=== PATIENT | female | born 1960 | race Caucasian/White ===

== ENCOUNTER 2019-04-05 05:28 | Inpatient (IN) ==
[2019-04-05] MEDS ORDERED: CLINDAMYCIN INJ 900 MG in PREMIX 1 EACH IV ONE (06:00)
[2019-04-05] MEDS ORDERED: VANCOMYCIN INJ 1,000 MG in SODIUM CHLORIDE 0.9% 250 ML IV ONE ×2 (06:00→19:05)
[2019-04-05] MEDS ORDERED: SCOPOLAMINE 1.5 MG PATCH TRANSDERM ONE ×2 (06:52→07:04)
[2019-04-05] MEDS ORDERED: VANCOMYCIN 1,000 MG VIAL ONE (07:04)
[2019-04-05] MEDS ORDERED: CLINDAMYCIN INJ 50 ML IV ONE (07:04)
[2019-04-05] MEDS ORDERED: LACTATED RINGERS 1,000 ML IV SCH (07:30)
[2019-04-05] MEDS ORDERED: BUPIVACAINE 0.5% 50 ML VIAL ONE (10:32)
[2019-04-05] MEDS ORDERED: DEXAMETHASONE 4 MG/1 ML VIAL ONE (10:32)
[2019-04-05] MEDS ORDERED: EPINEPHrine 1 MG/ML VIAL ONE (10:32)
[2019-04-05] MEDS ORDERED: GLUCAGON 1 MG VIAL IM PRN (11:04)
[2019-04-05] MEDS ORDERED: DEXTROSE 10% 25 GM/250 ML BAG IV PRN (11:04)
[2019-04-05] MEDS ORDERED: MORPHINE 4 MG/1 ML VIAL IV PRN ×2 (11:05)
[2019-04-05] MEDS ORDERED: ONDANSETRON 4 MG/2 ML VIAL IV PRN ×2 (11:05→13:25)
[2019-04-05] MEDS ORDERED: oxyCODONE IR 5 MG TABLET PO PRN ×2 (11:05)
[2019-04-05] MEDS ORDERED: ZALEPLON 5 MG CAPSULE PO PRN (11:05)
[2019-04-05] MEDS ORDERED: diphenhydrAMINE CAP 25 MG CAPSULE PO PRN (11:05)
[2019-04-05] MEDS: INSULIN LISPRO 100 UNIT/ML SUBCUT SCH ×3 (11:30→21:53)
[2019-04-05] MEDS ORDERED: SEVOFLURANE 1 UNIT/15 MINUTE INH ONE (13:18)
[2019-04-05] MEDS ORDERED: PROPOFOL 200 MG/20 ML VIAL IV ONE (13:18)
[2019-04-05] MEDS ORDERED: SUCCINYLCHOLINE 200 MG/10 ML VIAL ONE (13:19)
[2019-04-05] MEDS ORDERED: fentaNYL 100 MCG/2 ML VIAL ONE (13:19)
[2019-04-05] MEDS ORDERED: ROCURONIUM 100 MG/10 ML VIAL IV ONE (13:19)
[2019-04-05] MEDS ORDERED: ONDANSETRON 4 MG/2 ML VIAL ONE (13:19)
[2019-04-05] MEDS ORDERED: ACETAMINOPHEN 1,000 MG/100 ML VIAL IV ONE (13:19)
[2019-04-05] MEDS ORDERED: METOPROLOL TARTRATE 5 MG/5 ML VIAL IV ONE (13:19)
[2019-04-05] MEDS ORDERED: LACTATED RINGERS 1,000 ML IV ONE (13:19)
[2019-04-05] MEDS: HYDROmorphone 2 MG/1 ML VIAL IV PRN ×5 (13:32→14:45)
[2019-04-05] MEDS: LACTATED RINGERS 1,000 ML IV SCH ×2 (13:57→19:29)
[2019-04-05] MEDS: metFORMIN 500 MG TABLET PO SCH (16:57)
[2019-04-05] MEDS: ACETAMINOPHEN 500 MG TABLET PO SCH ×2 (17:07→21:54)
[2019-04-05] MEDS: CLINDAMYCIN INJ 900 MG in PREMIX 1 EACH IV SCH ×2 (17:17→23:18)
[2019-04-05] MEDS ORDERED: FESOTERODINE 8 MG PO SCH (21:00)
[2019-04-05] MEDS: DOCUSATE SODIUM 100 MG CAPSULE PO SCH (21:54)
[2019-04-06] MEDS: LACTATED RINGERS 1,000 ML IV SCH (04:35)
[2019-04-06] MEDS: FONDAPARINUX 2.5 MG/0.5 ML SYRINGE SUBCUT SCH (05:23)
[2019-04-06 05:38] LABS: Basophils % 0.2 % (0.0-0.8); Hematocrit 39.9 VOL% (35.7-47.0); Hemoglobin 12.8 GM/DL (12.0-16.0); Immature Granulocytes % 0.5 %; Immature Granulocytes Absolute 0.05 #; Lymphocytes # 1.7 10*3/uL (1.4-4.0); Lymphocytes % 16.3 % (21.3-54.2); Mean Corpuscular HGB Conc 32.1 GM/DL (32-36); Mean Corpuscular Volume 91.1 FL (87-102); Mean Platelet Volume 9.7 FL (9.6-12.0); Monocytes % 11.4 % (1.7-12.7); Neutrophils % 71.6 % (38.7-73.9); Platelet Count 241 T/CUMM (130-400); Red Blood Count 4.38 MC/CUMM (3.8-5.5); Red Cell Distribution Width 12.7 % (9.3-17.3); White Blood Count 10.6 T/CUMM (4-12)
[2019-04-06 06:11] LABS: Calcium 9.3 MG/DL (8.5-10.1)
[2019-04-06] MEDS: INSULIN LISPRO 100 UNIT/ML SUBCUT SCH ×4 (07:30→20:57)
[2019-04-06] MEDS ORDERED: NF- (Liraglutide [Victoza 2-Pak] 1.8 MG) SUBCUT SCH (09:00)
[2019-04-06] MEDS: LOSARTAN 50 MG TABLET PO SCH (09:37)
[2019-04-06] MEDS: MULTIVITAMIN (CENTRUM) TABLET PO SCH (09:37)
[2019-04-06] MEDS: LORATADINE 10 MG TABLET PO SCH (09:37)
[2019-04-06] MEDS: PANTOPRAZOLE 40 MG TABLET PO SCH (09:37)
[2019-04-06] MEDS: DOCUSATE SODIUM 100 MG CAPSULE PO SCH ×2 (09:37→20:57)
[2019-04-06] MEDS: ACETAMINOPHEN 500 MG TABLET PO SCH ×2 (09:37→15:05)
[2019-04-06] MEDS: metFORMIN 500 MG TABLET PO SCH ×2 (09:48→17:07)
[2019-04-06] MEDS ORDERED: ACETAMINOPHEN 500 MG TABLET ONE (14:59)
[2019-04-07 05:13] LABS: Basophils # 0.1 10*3/uL (0.0-0.2); Basophils % 0.5 % (0.0-0.8); Eosinophils # 0.2 10*3/uL (0.0-0.87); Eosinophils % 1.4 % (0.00-10.9); Hematocrit 37.2 VOL% (35.7-47.0); Hemoglobin 11.5 GM/DL (12.0-16.0); Immature Granulocytes % 0.7 %; Immature Granulocytes Absolute 0.08 #; Lymphocytes # 2.8 10*3/uL (1.4-4.0); Lymphocytes % 24.9 % (21.3-54.2); Mean Corpuscular HGB Conc 30.9 GM/DL (32-36); Mean Corpuscular Volume 93.9 FL (87-102); Mean Platelet Volume 9.7 FL (9.6-12.0); Monocytes % 13.1 % (1.7-12.7); Neutrophils % 59.4 % (38.7-73.9); Platelet Count 220 T/CUMM (130-400); Red Blood Count 3.96 MC/CUMM (3.8-5.5); Red Cell Distribution Width 13.1 % (9.3-17.3); White Blood Count 11.1 T/CUMM (4-12)
[2019-04-07 05:27] LABS: Calcium 9.1 MG/DL (8.5-10.1)
[2019-04-07] MEDS: FONDAPARINUX 2.5 MG/0.5 ML SYRINGE SUBCUT SCH (05:43)
[2019-04-07] MEDS: INSULIN LISPRO 100 UNIT/ML SUBCUT SCH ×4 (07:57→20:43)
[2019-04-07] MEDS ORDERED: hydroCHLOROthiazide 25 MG TABLET PO SCH (09:00)
[2019-04-07] MEDS: metFORMIN 500 MG TABLET PO SCH ×2 (09:00→17:59)
[2019-04-07] MEDS: MULTIVITAMIN (CENTRUM) TABLET PO SCH (09:28)
[2019-04-07] MEDS: PANTOPRAZOLE 40 MG TABLET PO SCH (09:29)
[2019-04-07] MEDS: DOCUSATE SODIUM 100 MG CAPSULE PO SCH ×2 (09:29→20:43)
[2019-04-07] MEDS: LORATADINE 10 MG TABLET PO SCH (09:29)
[2019-04-07] MEDS: LOSARTAN 50 MG TABLET PO SCH (09:29)
[2019-04-07] MEDS: MAGNESIUM HYDROXIDE SUSP 30 ML UDCUP PO PRN (20:43)
[2019-04-08] MEDS: FONDAPARINUX 2.5 MG/0.5 ML SYRINGE SUBCUT SCH (05:14)
[2019-04-08] MEDS: metFORMIN 500 MG TABLET PO SCH (08:33)
[2019-04-08] MEDS: LORATADINE 10 MG TABLET PO SCH (08:33)
[2019-04-08] MEDS: MULTIVITAMIN (CENTRUM) TABLET PO SCH (08:33)
[2019-04-08] MEDS: DOCUSATE SODIUM 100 MG CAPSULE PO SCH (08:34)
[2019-04-08] MEDS: PANTOPRAZOLE 40 MG TABLET PO SCH (08:34)
[2019-04-08] MEDS: LOSARTAN 50 MG TABLET PO SCH (08:34)
[2019-04-08] MEDS: MAGNESIUM HYDROXIDE SUSP 30 ML UDCUP PO PRN (08:34)
[2019-04-08] MEDS: INSULIN LISPRO 100 UNIT/ML SUBCUT SCH ×2 (08:37→12:35)
[2019-04-08 11:47] VITALS: BP 150/77
== END 2019-04-08 14:15 | DRG 302 ==
LOC: N.OR 05:28 → N.SDSINP 05:29 → N.3E 15:59
PROVIDERS: ADMIT Orthopaedic Surgery; ATTEND Orthopaedic Surgery

== ENCOUNTER 2019-08-02 05:19 | Inpatient (IN) ==
[2019-07-20 13:43] LABS: Basophils # 0.1 10*3/uL (0.0-0.2); Basophils % 0.7 % (0.0-0.8); Eosinophils # 0.3 10*3/uL (0.0-0.87); Eosinophils % 2.7 % (0.00-10.9); Hematocrit 45.4 VOL% (35.7-47.0); Hemoglobin 14.7 GM/DL (12.0-16.0); Immature Granulocytes % 0.4 %; Immature Granulocytes Absolute 0.04 #; Lymphocytes # 3.7 10*3/uL (1.4-4.0); Lymphocytes % 39.2 % (21.3-54.2); Mean Corpuscular HGB Conc 32.4 GM/DL (32-36); Mean Corpuscular Volume 89.7 FL (87-102); Monocytes % 8.6 % (1.7-12.7); Neutrophils % 48.4 % (38.7-73.9); Platelet Count 325 T/CUMM (130-400); Red Blood Count 5.06 MC/CUMM (3.8-5.5); Red Cell Distribution Width 12.5 % (9.3-17.3); White Blood Count 9.5 T/CUMM (4-12)
[2019-07-20 13:46] LABS: Apearance,Urine CLEAR (Clear); Bacteria,Urine Occasional /HPF (Few); Bilirubin,Urine Negative (Negative); Blood, Urine Negative (Negative); Glucose,Urine (UA) Negative (Negative); Ketones,Urine Negative (Negative); Nitrite,Urine Negative (Negative); Protein,Urine Negative; Squamous Epithelial Cell,Urine Occasional /HPF (0-10); Urine Color Straw (Yellow); Urine Specific Gravity 1.003 (1.001-1.035); Urine Urobilinogen < 2.0 EU/DL (0.2-1.0); WBC,Urine 1 /HPF (0-6)
[2019-07-20 14:07] LABS: INR 0.9; PT Patient Result 9.8 SECS (9.6-12.2); Partial Thromboplastin Time 26.4 SECS (20.8-36.0)
[2019-07-20 14:09] LABS: Albumin 3.5 G/DL (3.4-5.0); Bilirubin,Total 0.4 MG/DL (0.2-1.0); Calcium 10.1 MG/DL (8.5-10.1); Osmolality,Calculated 279.4 MOS/KG (273-304)
[2019-08-02] MEDS ORDERED: LACTATED RINGERS 1,000 ML IV SCH (06:00)
[2019-08-02] MEDS ORDERED: FAMOTIDINE 20 MG TABLET PO ONE (06:00)
[2019-08-02] MEDS ORDERED: ACETAMINOPHEN 500 MG TABLET PO ONE (06:00)
[2019-08-02] MEDS ORDERED: GABAPENTIN 400 MG CAPSULE PO ONE (06:00)
[2019-08-02] MEDS ORDERED: SCOPOLAMINE 1.5 MG PATCH TRANSDERM ONE ×2 (06:00→07:13)
[2019-08-02] MEDS ORDERED: DIAZEPAM 5 MG TABLET PO ONE (06:00)
[2019-08-02] MEDS ORDERED: CLINDAMYCIN INJ 900 MG in PREMIX 1 EACH IV ONE (06:30)
[2019-08-02] MEDS ORDERED: VANCOMYCIN INJ 1,000 MG in SODIUM CHLORIDE 0.9% 250 ML IV ONE ×2 (06:30→23:00)
[2019-08-02] MEDS ORDERED: DIAZEPAM 5 MG TABLET ONE (07:13)
[2019-08-02] MEDS ORDERED: ACETAMINOPHEN 500 MG TABLET ONE (07:13)
[2019-08-02] MEDS ORDERED: CLINDAMYCIN INJ 50 ML IV ONE (07:13)
[2019-08-02] MEDS ORDERED: GABAPENTIN 400 MG CAPSULE ONE (07:13)
[2019-08-02] MEDS ORDERED: FAMOTIDINE 20 MG TABLET ONE (07:14)
[2019-08-02] MEDS ORDERED: VANCOMYCIN 1,000 MG VIAL ONE (07:55)
[2019-08-02] MEDS ORDERED: LIDOCAINE 1% 5 ML VIAL ONE (10:03)
[2019-08-02] MEDS ORDERED: BUPIVACAINE SPINAL 0.75% 2 ML AMP SPINAL ONE ×2 (10:03→12:59)
[2019-08-02] MEDS ORDERED: DEXAMETHASONE 4 MG/1 ML VIAL ONE (10:03)
[2019-08-02] MEDS ORDERED: ROPIVACAINE 0.5% 30 ML VIAL ONE (10:03)
[2019-08-02] MEDS ORDERED: BACITRACIN OINT 0.9 GM PACK TOP ONE (12:03)
[2019-08-02] MEDS ORDERED: MAGNESIUM HYDROXIDE SUSP 30 ML UDCUP PO PRN (12:56)
[2019-08-02] MEDS ORDERED: ONDANSETRON 4 MG/2 ML VIAL IV PRN (12:56)
[2019-08-02] MEDS ORDERED: ZALEPLON 5 MG CAPSULE PO PRN (12:56)
[2019-08-02] MEDS ORDERED: diphenhydrAMINE CAP 25 MG CAPSULE PO PRN (12:56)
[2019-08-02] MEDS ORDERED: GLUCAGON 1 MG VIAL IM PRN ×2 (12:58→15:31)
[2019-08-02] MEDS ORDERED: DEXTROSE 10% 25 GM/250 ML BAG IV PRN (12:58)
[2019-08-02] MEDS ORDERED: MIDAZOLAM 2 MG/2 ML VIAL ONE (12:59)
[2019-08-02] MEDS ORDERED: PROPOFOL 500 MG/50 ML BOTTLE IV ONE (12:59)
[2019-08-02] MEDS ORDERED: TRANEXAMIC ACID 1,000 MG/10 ML VIAL ONE (12:59)
[2019-08-02] MEDS ORDERED: SODIUM CHLORIDE 0.9% 400 ML IV ONE (12:59)
[2019-08-02] MEDS ORDERED: PHENYLEPHRINE 1 MG/10 ML SYRINGE IV ONE (12:59)
[2019-08-02] MEDS ORDERED: PROPOFOL 200 MG/20 ML VIAL IV ONE (12:59)
[2019-08-02] MEDS: LACTATED RINGERS 1,000 ML IV SCH ×2 (14:10→21:24)
[2019-08-02] MEDS: MORPHINE 4 MG/1 ML VIAL IV PRN ×2 (15:24→18:50)
[2019-08-02] MEDS ORDERED: DEXTROSE 10% 250 ML BAG IV PRN (15:31)
[2019-08-02] MEDS ORDERED: hydrALAZINE 20 MG/1 ML VIAL IV PRN (15:37)
[2019-08-02] MEDS ORDERED: TUBERCULIN SKIN TEST 0.1 ML SYRINGE INTRADERM ONE (16:10)
[2019-08-02] MEDS: INSULIN LISPRO 100 UNIT/ML SUBCUT SCH ×2 (16:56→20:38)
[2019-08-02] MEDS: metFORMIN 500 MG TABLET PO SCH (17:03)
[2019-08-02] MEDS: DOCUSATE SODIUM 100 MG CAPSULE PO SCH (20:38)
[2019-08-02] MEDS: CLINDAMYCIN INJ 900 MG in PREMIX 1 EACH IV SCH (20:38)
[2019-08-03] MEDS: MORPHINE 4 MG/1 ML VIAL IV PRN ×3 (00:06→18:04)
[2019-08-03] MEDS: CLINDAMYCIN INJ 900 MG in PREMIX 1 EACH IV SCH (04:31)
[2019-08-03 05:28] LABS: Basophils % 0.3 % (0.0-0.8); Eosinophils % 0.1 % (0.00-10.9); Hematocrit 39.6 VOL% (35.7-47.0); Hemoglobin 12.7 GM/DL (12.0-16.0); Immature Granulocytes % 0.6 %; Immature Granulocytes Absolute 0.06 #; Lymphocytes # 1.8 10*3/uL (1.4-4.0); Mean Corpuscular HGB Conc 32.1 GM/DL (32-36); Mean Corpuscular Volume 89.6 FL (87-102); Mean Platelet Volume 9.1 FL (9.6-12.0); Monocytes % 11.5 % (1.7-12.7); Neutrophils % 69.5 % (38.7-73.9); Platelet Count 234 T/CUMM (130-400); Red Blood Count 4.42 MC/CUMM (3.8-5.5); Red Cell Distribution Width 12.6 % (9.3-17.3); White Blood Count 9.7 T/CUMM (4-12)
[2019-08-03 05:44] LABS: Calcium 9.7 MG/DL (8.5-10.1); Osmolality,Calculated 286.1 MOS/KG (273-304)
[2019-08-03] MEDS: FONDAPARINUX 2.5 MG/0.5 ML SYRINGE SUBCUT SCH (06:20)
[2019-08-03] MEDS: DOCUSATE SODIUM 100 MG CAPSULE PO SCH ×2 (08:06→20:56)
[2019-08-03] MEDS: OLMESARTAN 20 MG TABLET PO SCH (08:07)
[2019-08-03] MEDS: MULTIVITAMIN (CENTRUM) TABLET PO SCH (08:07)
[2019-08-03] MEDS: metFORMIN 500 MG TABLET PO SCH ×2 (08:07→18:03)
[2019-08-03] MEDS: INSULIN LISPRO 100 UNIT/ML SUBCUT SCH ×4 (08:44→20:55)
[2019-08-03] MEDS ORDERED: Liraglutide [Victoza 2-Pak] 1.8 MG SUBCUT SCH (09:00)
[2019-08-03] MEDS ORDERED: FESOTERODINE 8 MG PO SCH (09:00)
[2019-08-04] MEDS: MORPHINE 4 MG/1 ML VIAL IV PRN ×2 (01:41→09:27)
[2019-08-04 05:20] LABS: Basophils # 0.1 10*3/uL (0.0-0.2); Basophils % 0.5 % (0.0-0.8); Eosinophils # 0.1 10*3/uL (0.0-0.87); Eosinophils % 1.1 % (0.00-10.9); Hematocrit 37.6 VOL% (35.7-47.0); Hemoglobin 12.2 GM/DL (12.0-16.0); Immature Granulocytes % 1.5 %; Immature Granulocytes Absolute 0.16 #; Lymphocytes # 2.1 10*3/uL (1.4-4.0); Lymphocytes % 18.6 % (21.3-54.2); Mean Corpuscular HGB Conc 32.4 GM/DL (32-36); Mean Corpuscular Volume 89.5 FL (87-102); Monocytes % 12.3 % (1.7-12.7); Platelet Count 221 T/CUMM (130-400); Red Cell Distribution Width 12.7 % (9.3-17.3)
[2019-08-04 05:38] LABS: Calcium 9.7 MG/DL (8.5-10.1); Osmolality,Calculated 274.1 MOS/KG (273-304)
[2019-08-04] MEDS: FONDAPARINUX 2.5 MG/0.5 ML SYRINGE SUBCUT SCH (06:30)
[2019-08-04] MEDS ORDERED: oxyCODONE/ACETAMINOPHEN 5-325 MG TABLET PO PRN ×2 (09:18→09:25)
[2019-08-04] MEDS: metFORMIN 500 MG TABLET PO SCH ×2 (09:26→17:30)
[2019-08-04] MEDS: OLMESARTAN 20 MG TABLET PO SCH (09:26)
[2019-08-04] MEDS: MULTIVITAMIN (CENTRUM) TABLET PO SCH (09:27)
[2019-08-04] MEDS: DOCUSATE SODIUM 100 MG CAPSULE PO SCH ×2 (09:27→21:40)
[2019-08-04] MEDS: INSULIN LISPRO 100 UNIT/ML SUBCUT SCH ×4 (09:28→21:40)
[2019-08-04] MEDS ORDERED: ALBUTEROL/IPRATROPIUM 3 ML NEB RESP TX PRN (11:08)
[2019-08-05 05:04] LABS: Basophils # 0.1 10*3/uL (0.0-0.2); Basophils % 0.5 % (0.0-0.8); Eosinophils # 0.2 10*3/uL (0.0-0.87); Eosinophils % 1.7 % (0.00-10.9); Hematocrit 38.1 VOL% (35.7-47.0); Hemoglobin 12.2 GM/DL (12.0-16.0); Immature Granulocytes % 0.7 %; Immature Granulocytes Absolute 0.08 #; Lymphocytes # 2.1 10*3/uL (1.4-4.0); Lymphocytes % 19.7 % (21.3-54.2); Mean Corpuscular Volume 90.5 FL (87-102); Mean Platelet Volume 9.5 FL (9.6-12.0); Monocytes % 12.7 % (1.7-12.7); Neutrophils % 64.7 % (38.7-73.9); Platelet Count 217 T/CUMM (130-400); Red Blood Count 4.21 MC/CUMM (3.8-5.5); Red Cell Distribution Width 12.9 % (9.3-17.3); White Blood Count 10.7 T/CUMM (4-12)
[2019-08-05] MEDS: FONDAPARINUX 2.5 MG/0.5 ML SYRINGE SUBCUT SCH (06:22)
[2019-08-05] MEDS: MULTIVITAMIN (CENTRUM) TABLET PO SCH (09:08)
[2019-08-05] MEDS: OLMESARTAN 20 MG TABLET PO SCH (09:08)
[2019-08-05] MEDS: metFORMIN 500 MG TABLET PO SCH (09:09)
[2019-08-05] MEDS: DOCUSATE SODIUM 100 MG CAPSULE PO SCH (09:09)
[2019-08-05] MEDS: INSULIN LISPRO 100 UNIT/ML SUBCUT SCH ×2 (09:10→12:13)
[2019-08-05 11:30] VITALS: BP 136/76
== END 2019-08-05 13:42 | disposition swing bed (61) | DRG 302 ==
LOC: N.OR 05:19 → N.SDSINP 05:20 → N.3E 14:06
PROVIDERS: ADMIT Orthopaedic Surgery; ATTEND Orthopaedic Surgery